=== PATIENT | female | born 2000 | race Caucasian/White ===

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

== ENCOUNTER → 2022-01-19 11:28 | Outpatient (BNVA) | payer MEDICAID, SELFPAY | PROVIDERS: PCP Electrodiagnostic Medicine; Visit Provider Nurse Practitioner Women's Health | DX: Z30.9 Encounter for contraceptive management, unspecified (principal); Z30.017 Encounter for initial prescription of implantable subdermal contraceptive | CPT/HCPCS: 81025 ==

== ENCOUNTER → 2022-10-29 15:27 | Outpatient (BNVA) | payer OTHER, MEDICAID, SELFPAY | PROVIDERS: PCP Electrodiagnostic Medicine; Visit Provider Nurse Practitioner Women's Health | DX: N94.10 Unspecified dyspareunia (principal) | CPT/HCPCS: 76830 ==

== ENCOUNTER 2022-12-07 07:03 | Day surgery (SDC) | payer OTHER, MEDICAID, SELFPAY ==
[2022-12-05 12:11] VITALS: BMI 21.4
[2022-12-07 07:49] VITALS: BP 120/78; PULSE 91; RESP 16; TEMP 36.8; O2SAT 100
[2022-12-07] MEDS: sodium chloride 0.9% 1,000 ML 30 ML IV (07:54)
[2022-12-07 07:58] LABS: OR HCG Qualitative Urine Negative (Negative)
--- NOTE | 2022-12-07 08:16 | ANES.PREANE2 ---
Pre-Anesthetic Assessment Height/Weight: Height 1.75 m Weight 65.771 kg Temp Pulse Resp BP Pulse Ox O2 Del Method 98.2 F 91 16 120/78 100 Room Air 12/07/22 07:49 12/07/22 07:49 12/07/22 07:49 12/07/22 07:49 12/07/22 07:49 12/07/22 07:49 Operation Date: 12/07/22 08:45 Proposed Procedures p 04408 colonoscopy, K92.1 hematochezia(Not Applicable) - Eduin Isbell DO Familial anesthetic complications: None Was Beta Darrell taken within 24 hours: N/A Was Clonidine taken within 24 hours: N/A Last intake: Intake Last Liquid Date 12/06/22 Last Liquid Time 22:00 Last Solid Date 12/05/22 Last Solid Time 17:30 Social No alcohol and No tobacco Exam alert, oriented x 3, clear to auscultation bilaterally and regular rate & rhythm Airway Submandibular: within normal limits Cervical ROM: within normal limits Mallampati: Class I Dentition: full History/ROS No significant history except as noted, No significant complaints and Other Pulmonary None reported CV/HEM None reported None reported Hepatic None reported GI None reported Metabolic None reported Musc/skel None reported Neuropsych Anxiety Anesthetic Plan ASA status: 1 Anesthesia: Anesthesia Evaluation, General and MAC Risk of > 500 ml blood loss (7ml/kg in children): No Medications/Allergies Home Medications Medication Instructions Recorded Confirmed Last Taken Type etonogestrel 68 mg subdermal 68 mg subdermal DIRECTED 03/08/22 12/07/22 Unknown History implant (Nexplanon) cranberry 12/07/22 12/05/22 History evening primrose oil 500 mg capsule 500 mg PO DAILY 12/07/22 12/07/22 12/05/22 History magnesium 500 mg tablet 1 PO DAILY 12/07/22 12/05/22 History multivitamin 1 tab PO DAILY 12/07/22 12/07/22 12/05/22 History Allergies Allergy/AdvReac Type Severity Reaction Status Date / Time lavender (Lavandula Allergy ALGY-Rash Verified 12/07/22 07:42 angustifolia) Current Medications Generic Name Dose Route Start Last Admin Trade Name Freq PRN Reason Stop Dose Admin Sodium Chloride 1,000 mls @ 30 mls/hr 12/07/22 07:15 12/07/22 07:54 Sodium Chloride 0.9% IV 12/08/22 07:14 30 mls/hr .Q24H SAVANAH Administration PFSH Anesthesia Medical History No significant past medical history neghx: htn,dm,thyroid,dvt/pe PCP: Dan[facility] Surgical History Hx of tonsillectomy (~2013) Family History Mother Cancer Vaginal cancer (very rare type) Grandfather Hypertension Paternal Colon cancer Paternal--dx age 80's Denies family history of Ovarian cancer Diabetes Breast cancer Uterine cancer Thyroid disease Stroke Social History Substance/Drug Use: never Data Anesthesia Cardiac Studies: No Data to Display
--- NOTE | 2022-12-07 09:21 | W.PM.OPSUD ---
Surgery/Procedure H&P Update DATE OF PROCEDURE: December 07, 2022 DATE H&P PERFORMED: 11/07/22 H&P UPDATE INFORMATION: I have reviewed H&P completed within last 30 days, I have examined patient prior to procedure and No changes to prior documentation PLANNED PROCEDURE: Operation Date: 12/07/22 08:45 Proposed Procedures p 25571 colonoscopy, K92.1 hematochezia(Not Applicable) - Eduin Isbell DO
[2022-12-07 09:48] VITALS: BP 102/43; PULSE 73; RESP 14; TEMP 36.1; O2SAT 97
[2022-12-07 10:07] VITALS: BP 106/57; PULSE 76; RESP 16; O2SAT 97
--- NOTE | 2022-12-07 13:57 | ANE.PACU2 ---
Inpatient post-anesthesia follow up: Airway intact: Yes Vital signs: Temperature 97 F Pulse Rate 76 Respiratory Rate 16 Blood Pressure 106/57 Pulse Oximetry 97 Oxygen Delivery Me thod Room Air Oxygen Flow Rate Fraction of Inspir ed Oxygen Hydration adequate: Yes Nausea and vomiting: No Pain level: 1 Mental status: Baseline
== END 2022-12-07 10:30 | disposition home or self-care (01) ==
PROVIDERS: Anesthesiology; PCP Electrodiagnostic Medicine; Visit Provider Surgery
PROC: 0DJD8ZZ Inspection of Lower Intestinal Tract, Via Natural or Artificial Opening Endoscopic (ICD-10-PCS; CPT 45378; principal; 2022-12-07 08:45)
DX: K62.5 Hemorrhage of anus and rectum (principal); K64.8 Other hemorrhoids
CPT/HCPCS: 45378; 81025; 84703; J2704; J7030

== ENCOUNTER → 2024-04-03 10:57 | Outpatient (BNVA) | payer OTHER, SELFPAY | PROVIDERS: PCP Electrodiagnostic Medicine; Visit Provider Nurse Practitioner Women's Health | DX: N92.6 Irregular menstruation, unspecified (principal) | CPT/HCPCS: 84702 ==

== ENCOUNTER → 2024-04-06 14:38 | Outpatient (BNVA) | payer OTHER, SELFPAY | PROVIDERS: PCP Electrodiagnostic Medicine; Visit Provider Nurse Practitioner Women's Health | DX: N91.2 Amenorrhea, unspecified (principal) | CPT/HCPCS: 84702 ==

== ENCOUNTER → 2024-04-14 09:57 | Outpatient (BNVA) | payer OTHER, SELFPAY | PROVIDERS: PCP Electrodiagnostic Medicine; Visit Provider Nurse Practitioner Women's Health | DX: N92.6 Irregular menstruation, unspecified (principal) | CPT/HCPCS: 81025 ==

== ENCOUNTER → 2024-04-21 10:56 | Outpatient (BNVA) | payer OTHER, SELFPAY | PROVIDERS: PCP Electrodiagnostic Medicine; Visit Provider Nurse Practitioner Women's Health | DX: Z34.91 Encounter for supervision of normal pregnancy, unspecified, first trimester (principal); Z3A.01 Less than 8 weeks gestation of pregnancy | CPT/HCPCS: 76817 ==

== ENCOUNTER → 2024-05-25 08:38 | Outpatient (BNVA) | payer OTHER, SELFPAY | PROVIDERS: PCP Electrodiagnostic Medicine; Visit Provider Nurse Practitioner Women's Health | DX: Z34.90 Encounter for supervision of normal pregnancy, unspecified, unspecified trimester (principal) | CPT/HCPCS: 80307; 84315; 85025; 86592; 86762; 86803; 86850; 86900; 87086; 87340; 87806 ==

== ENCOUNTER 2024-11-10 19:27 | Outpatient (CLI) | payer OTHER, SELFPAY ==
[2024-11-10] VITALS (11 sets, daily range): BP systolic 151–182; BP diastolic 92–104; PULSE 54–80; RESP 16; TEMP 37.6; O2SAT 97; BMI 30.1
[2024-11-10] MEDS: labetalol 5 mg/mL SDV 20mL 20 MG IVP (20:25)
[2024-11-10] MEDS: betamethasone susp 6 mg/mL 5 mL 12 MG IM (20:27)
[2024-11-10 20:42] LABS: Bilirubin Urine Negative (Negative); Blood Urine Negative (Negative); Glucose Urine UA Negative (Normal); Ketones Urine Negative (Negative); Leukocyte Esterase Urine Trace (Negative); Nitrate Urine Negative (Negative); Protein Urine Negative (Negative); Urine Appearance Clear (CLEAR); Urine Color Yellow (Yellow); Urobilinogen Urine 0.2 mg/dL (Negative)
[2024-11-10 20:44] LABS: Add Urine Microscopic? YES; Bacteria Urine Trace /hpf; Hyaline Casts Urine 0-4 /lpf; RBC Urine 0-2 /hpf (0-2); WBC Urine 0-5 /hpf (0-5)
[2024-11-10 20:46] LABS: Basophils # 0.1 10^3/uL (0.0-0.1); Basophils % 0.5 %; Eosinophils % 0.2 %; Hematocrit 38.7 % (36-47); Lymphocytes # 4.1 10^3/uL (0.8-4.8); Lymphocytes % 37.7 %; Mean Corpuscular HGB Conc 35.1 g/dL (30-55); Mean Corpuscular Hemoglobin 34.8 pg (27-33); Mean Platelet Volume 10.2 fL (7.4-10.4); Monocytes % 9.5 %; Neutrophils # 5.67 10^3/uL (1.8-7.7); Neutrophils % 51.8 %; Nucleated Red Blood Cells % 0 %; Platelet Count 191 10^3/cmm (157-399); Red Blood Count 3.91 10^6/uL (3.85-5.65); Red Cell Distribution Width 12.9 % (12.1-15.1); White Blood Count 10.95 10^3/uL (3.29-11.43)
[2024-11-10] MEDS: labetalol 5 mg/mL SDV 20mL 40 MG IVP (20:52)
--- NOTE | 2024-11-10 20:54 | P.TS_ITS ---
Transfer Summary Providers Date of Discharge/Transfer: 11/10/24 Attending Provider at Transfer: Ady Gracia MD Primary Care Provider: Laron Carrasco DO Transfer Plans: Anticipated date of transfer: 11/10/24 . Reason for Visit Reason for Visit high blood pressure, swelling Hospital Course Hospital Course This is a 24-year-old that presented at 35 weeks 1 day with elevated blood pressure, swelling, and difficulty focusing. The patient was found to have severe blood pressure on arrival and it was persistent 10 minutes later. Patient was diagnosed with preeclampsia with severe features and labetalol protocol was started. Lab work was obtained. Since the patient is only 35 weeks, it was ideal to transfer from this facility for appropriate care. This was discussed with Dr. Pyle and he agreed to accept the transfer. Physical Exam Const: COMMON NORMALS: no acute distress, average body habitus, patient o riented x3, healthy appearing and alert HENMT: COMMON NORMALS: normocephalic and moist oral mucous membranes HEAD & SCALP: normocephalic Neck/C-Spine: COMMON NORMALS: no JVD Resp: COMMON NORMALS: normal respiratory effort, No retractions and No use of accessory muscles Cardio: COMMON NORMALS: no JVD, regular rate and regular rhythm RATE: regular rate RHYTHM: regular rhythm GI: OTHER: Gravid uterus Extremity: GENERAL: Yes edema Neuro: COMMON NORMALS: patient oriented x3, moves all extremities, no focal motor deficits, no sensory deficits noted and deep tendon reflexes 2+ bilaterally SENSORIUM/ORIENTATION: Yes alert Psych: COMMON NORMALS: mental status grossly normal, Normal thought process present, cooperative, normal affect and activity/motor behavior normal THOUGHT PROCESS: Normal thought process present Skin: COMMON NORMALS: no rashes or lesions noted GENERAL SKIN EXAM: no rashes or lesions noted TS Data Studies Completed and Pending Pending at discharge Category Date Time Status Comprehensive Metabolic Panel Stat Lab 11/10/24 20:45 Ordered Protein/Creatinine Ratio Stat Lab 11/10/24 19:27 Received Uric Acid Stat Lab 11/10/24 20:45 Ordered Laboratory Last Values WBC 10.95 10^3/uL (3.29-11.43) 11/10/24 20:24 RBC 3.91 10^6/uL (3.85-5.65) 11/10/24 20:24 Hgb 13.60 g/dL (11.27-16.99) 11/10/24 20:24 Hct 38.7 % (36-47) 11/10/24 20:24 MCV 99.0 fl (85-98) H 11/10/24 20:24 MCH 34.8 pg (27-33) H 11/10/24 20:24 MCHC 35.1 g/dL (30-55) 11/10/24 20: RDW 12.9 % (12.1-15.1) 11/10/24 20:24 Plt Count 191 10^3/cmm (157-399) 11/10/24 20:24 MPV 10.2 fL (7.4-10.4) 11/10/24 20:24 Neut % (Auto) 51.8 % 11/10/24 20: Lymph % (Auto) 37.7 % 11/10/24 20: [place] % (Auto) 9.5 % 11/10/24 20: Eos % (Auto) 0.2 % 11/10/24 20: Baso % (Auto) 0.5 % 11/10/24 20:24 Neut # (Auto) 5.67 10^3/uL (1.8-7.7) 11/10/24 20: Lymph # (Auto) 4.1 10^3/uL (0.8-4.8) 11/10/24 20:24 [place] # (Auto) 1.0 10^3/uL (0.2-0.9) H 11/10/24 20:24 Eos # (Auto) 0.0 10^3/uL (0.0-0.8) 11/10/24 20:24 Baso # (Auto) 0.1 10^3/uL (0.0-0.1) 11/10/24: Nucleated RBC % (auto) 0 % 11/10/24 20: Nucleated RBCs # 0.0 /100WBC 11/10/24 20:24 Sodium Cancelled 11/10/24 20:24 Potassium Cancelled 11/10/24 20:24 Chloride Cancelled 11/10/24 20:24 Carbon Dioxide Cancelled 11/10/24 20:24 Anion Gap Cancelled 11/10/24 20:24 BUN Cancelled 11/10/24 20:24 Creatinine Cancelled 11/10/24 20:24 GFR Calculation Cancelled 11/10/24 20:24 Glucose Cancelled 11/10/24 20:24 Calculated Osmolality Cancelled 11/10/24 20:24 Uric Acid Cancelled 11/10/24 20:24 Calcium Cancelled 11/10/24 20:24 Total Bilirubin Cancelled 11/10/24 20:24 AST Cancelled 11/10/24 20:24 ALT Cancelled 11/10/24 20:24 Alkaline Phosphatase Cancelled 11/10/24 20:24 Total Protein Cancelled 11/10/24 20:24 Albumin Cancelled 11/10/24 20:24 Globulin Cancelled 11/10/24 20:24 Urine Color Yellow (Yellow) 11/10/24 19:27 Urine Appearance Clear (CLEAR) 11/10/24 19:27 Urine pH 7.0 (5-7) 11/10/24 19:27 Ur Specific [place] 1.010 (1.005-1.030) 11/10/24 19:27 Urine Protein Negative (Negative) 11/10/24 19:27 Urine Glucose (UA) Negative (Normal) 11/10/24 19:27 Urine Ketones Negative (Negative) 11/10/24 19:27 Urine Blood Negative (Negative) 11/10/24 19:27 Urine Nitrate Negative (Negative) 11/10/24 19:27 Urine Bilirubin Negative (Negative) 11/10/24 19:27 Urine Urobilinogen 0.2 mg/dL (Negative) 11/10/24 19:27 Ur Leukocyte Esterase Trace (Negative) A 11/10/24 19:27 Urine RBC 0-2 /hpf (0-2) 11/10/24 19:27 Urine WBC 0-5 /hpf (0-5) 11/10/24 19:27 Ur Squamous Epith Cells 6-10 /hpf (0-5) 11/10/24 19:27 Amorphous Sediment Not Reportable 11/10/24 19:27 Urine Bacteria Trace /hpf (NONE) 11/10/24 19:27 Hyaline Casts 0-4 /lpf H 11/10/24 19:27 Recent Clincial Data Last Vital Signs Pulse 60 11/10/24 20:39 BP 160/97 11/10/24 20:39 Vital Signs Pulse BP 11/10/24 20:39 60 11/10/24 20:39 160/97 11/10/24 20:25 68 11/10/24 20:25 170/102 11/10/24 20:17 61 11/10/24 20:17 182/102 11/10/24 20:06 59 L 11/10/24 20:06 168/99 11/10/24 19:55 64 162/103 11/10/24 19:45 60 167/104 Intake & Output/Weight 11/08/24 11/09/24 11/10/24 11/11/24 06:59 06:59 06:59 06:59 Weight 89.811 kg Vitals Last Vital Signs Pulse 60 11/10/24 20:39 BP 160/97 11/10/24 20:39 TS Medications Medications Hydralazine HCl (Hydralazine 20 Mg/Ml Inj 1 Ml) 5 mg IVP PRN PRN; Protocol PRN Reason: HYPERTENSION Hydralazine HCl (Hydralazine 20 Mg/Ml Inj 1 Ml) 20 mg IVP PRN PRN; Protocol PRN Reason: HYPERTENSION Hydralazine HCl (Hydralazine 20 Mg/Ml Inj 1 Ml) 10 mg IVP PRN PRN; Protocol PRN Reason: HYPERTENSION Labetalol HCl (Labetalol 5 Mg/Ml Sdv 20ml) 80 mg IVP PRN PRN; Protocol PRN Reason: HYPERTENSION Labetalol HCl (Labetalol 5 Mg/Ml Sdv 20ml) 40 mg IVP PRN PRN; Protocol PRN Reason: HYPERTENSION Labetalol HCl (Labetalol 5 Mg/Ml Sdv 20ml) 20 mg IVP PRN PRN; Protocol PRN Reason: HYPERTENSION Last Admin: 11/10/24 20:25 Dose: 20 mg Discontinued Medications Betamethasone Acet/Betameth SodPhos (Betamethasone Susp 6 Mg/Ml 5 Ml) 12 mg IM ONCE ONE Stop: 11/10/24 20:08 Last Admin: 11/10/24 20:27 Dose: 12 mg Labetalol HCl (Labetalol 5 Mg/Ml Sdv 20ml) 40 mg IVP PRN PRN; Protocol PRN Reason: HYPERTENSION Allergies lavender (Lavandula angustifolia) Allergy (Verified 05/25/24 07:39) ALGY-Rash Home Medications PNV 153-FA 400 mcg-om3 35 mg-dha 25 mg-epa 5 mg-fish oil chew tablet ( Gummies) tab PO DAILY 04/14/24 [History Confirmed 05/25/24] docosahexaenoic acid 200 mg capsule (Algal Megargel-3 DHA) mg PO DAILY 04/14/24 [History Confirmed 05/25/24] Discharge Plan Discharge Patient Disposition: Xfer Short-Term Hosp Prescriptions: No Action lidocaine-epinephrine (PF) 2 %-1:200,000 solution 1 ml SUBCUT ONCE Qty: 1 0RF povidone-iodine [Betadine Swabsticks] 10 % swab 1 applic topical ONCE Qty: 3 0RF Gummies 400 mcg-35 mg- 25 mg-5 mg tablet,chewable PO DAILY Algal Megargel-3 DHA 200 mg capsule PO DAILY Discharge Orders: Transfer Out of Facility (Order); Ordered 11/10/24 Ordered By: Ady Gracia Print Language: Guamanian Transfer Attestations Time Spent in Transfer Care: greater than 30 min Coding Level of Care Code Acute Code for Chg Mirela
[2024-11-10 21:01] LABS: Urine Creatinine 56 mg/dL (28-217); Urine Protein Random 11 mg/dL
[2024-11-10 21:22] LABS: Alanine Aminotransferase 17 U/L (0-33); Albumin Level 3.4 g/dL (3.5-5.2); Alkaline Phosphatase 109 U/L (35-105); Anion Gap 15.9 (5-19); Aspartate Amino Transferase 27 U/L (0-32); Blood Urea Nitrogen 14 mg/dL (6-20); Calcium 8.7 mg/dL (8.5-10.5); Carbon Dioxide 19 mmol/L (22-29); Chloride 107 mmol/L (98-107); Creatinine Clr Calc Pharmacy 114.9494; Globulin 2.7 g/dL (1.3-4.6); Glomerular Filtration Rate 78.3 mL/min (90-130); Glucose 78 mg/dL (65-115); Osmolality Calculated 285 mOsm/kg (285-295); Potassium 3.9 mmol/L (3.5-5.1); Sodium 138 mmol/L (136-145); Total Bilirubin 0.2 mg/dL (0.15-1.2); Total Protein 6.1 g/dL (6.6-8.7); Uric Acid 6.2 mg/dL (2.4-5.7)
== END 2024-11-10 21:57 | disposition skilled nursing facility (03) ==
LOC: OPOB 19:42 → OBGYN 19:42
PROVIDERS: PCP Electrodiagnostic Medicine; Visit Provider Family Medicine
DX: O13.9 Gestational [pregnancy-induced] hypertension without significant proteinuria, unspecified trimester (principal); Z3A.00 Weeks of gestation of pregnancy not specified; R60.9 Edema, unspecified
CPT/HCPCS: 36415; 59025; 80053; 81001; 82570; 84156; 84550; 85025; 96372; 96374; 96376; 99211; J0702; J3490

== ENCOUNTER 2025-04-12 08:47 | Outpatient (CLI) | payer OTHER, MEDICAID, SELFPAY ==
--- NOTE | 2025-04-12 08:52 | US_ITS ---
WS: [id number] ULTRASOUND BILATERAL BREAST, limited HISTORY: BREAST LUMP/MASS COMPARISON: None available. TECHNIQUE: 2-D and Doppler. Ultrasound is directed to the areas of concern by the patient. RIGHT breast: 12:00, no abnormality identified. Normal dense fibroglandular tissue. LEFT breast: 12 and 6:00, no abnormality identified. Normal dense fibroglandular breast tissue. US/US breast BI limited* [id number] IMPRESSION: BI-RADS: 1- Negative FOLLOW-UP: See Report Normal dense fibroglandular tissue within each breast in the areas of clinical concern. No suspicious masses. No abscess or galactocele.
== END 2025-04-12 08:48 | disposition home or self-care (01) ==
LOC: RAD 08:48
PROVIDERS: PCP Electrodiagnostic Medicine; Visit Provider Nurse Practitioner Family
DX: N63.20 Unspecified lump in the left breast, unspecified quadrant (principal)
CPT/HCPCS: 76642